=== PATIENT | male | born 1965 | race Caucasian/White ===

== ENCOUNTER 2022-11-03 11:32 | Emergency (ER) | payer BC ==
[~2022-11-03] VITALS: Ht 167.6 cm; Wt 82.6 kg
[2022-11-03 11:58] VITALS: BP 149/79
[2022-11-03 13:20] LABS: APPEARANCE,URINE HAZY (CLEAR); BILIRUBIN,URINE NEGATIVE (NEGATIVE); BLOOD, URINE 1+ (NEGATIVE); COLOR,URINE YELLOW (YELLOW); LEUKOCYTE ESTERASE ,URINE NEGATIVE (NEGATIVE); NITRITE, URINE NEGATIVE (NEGATIVE); PH,URINE 5.5 (5.0-9.0); UGLUCOSE NEGATIVE (NEGATIVE)
[2022-11-03 13:36] LABS: RBC,URINE 0-5 /HPF (0-5); WBC,URINE 0-5 /HPF (0-5)
[2022-11-03] MEDS ORDERED: BPM/118S31 PO (13:36)
[2022-11-03] MEDS ORDERED: IBUP-1842 PO (13:36)
--- NOTE | 2022-11-03 13:39 | NUR ---
Patient discharged with v/s stable. Written and verbal after care instructions given. Patient alert, oriented and verbalized understanding of instructions. Ambulatory with steady gait. All questions addressed prior to discharge. ID band removed. Patient advised to follow up with PMD. Rx of Bromfed DM Cough Syrup and Ibuprofen given. Opportunity to ask questions provided and answered. WORK NOTE HANDED TO PATIENT. DISCHARGED BY DARWIN GILLIAM.
--- NOTE | 2022-11-03 13:40 | NUR ---
The patient's care was reviewed and supervised by Glenny Montgomery, RN, RN.
== END 2022-11-03 13:39 | disposition home or self-care (01) ==
LOC: MED 11:32
DX: B34.9 Viral infection, unspecified (principal); Z20.822 Contact with and (suspected) exposure to COVID-19; Z79.899 Other long term (current) drug therapy
CPT/HCPCS: 81001; 87086; 99283